=== PATIENT | female | born 1960 | race Caucasian/White ===

== ENCOUNTER 2021-01-05 10:58 | Emergency (ER) | payer SELFPAY ==
--- NOTE | 2021-01-05 11:38 | RAD REPORT ---
EXAM DESCRIPTION: RAD - Ankle Right 3 View - 01/05/2021 11:30 am CLINICAL HISTORY: Ankle pain FINDINGS: Mildly displaced lateral malleolar fracture. Small chip fracture from the medial malleolus. No dislocation. Soft tissue swelling
--- NOTE | 2021-01-05 11:47 | ER ---
Nurse's Notes [facility] [place] Name: Nelly Batista Age: 60 yrs Sex: Female : 1960 Arrival Date: 01/05/2021 Time: 10:59 Bed 12 Private MD: Diagnosis: Displaced fracture of lateral malleolus of right fibula Presentation: 01/05 11:01 Chief complaint: Patient states: "I was just walking my dog and I twisted my ankle". Pt aa5 c/o pain to right ankle pain. Coronavirus screen: At this time, the client does not indicate any symptoms associated with coronavirus-19. Ebola Screen: No symptoms or risks identified at this time. Initial Sepsis Screen: Does the patient meet any 2 criteria? No. Patient's initial sepsis screen is negative. Does the patient have a suspected source of infection? No. Patient's initial sepsis screen is negative. Risk Assessment: Do you want to hurt yourself or someone else? Patient reports no desire to harm self or others. Onset of symptoms was December 2020. 11:01 Method Of Arrival: Wheelchair aa5 11:01 Acuity: JAZZY 4 aa5 Historical: - Allergies: 11:02 No Known Allergies; aa5 - PMHx: 11:02 Seizure; aa5 - PSHx: 11:02 None; aa5 - Immunization history:: Client reports receiving the 2nd dose of the Covid vaccine. - Social history:: Smoking status: Patient denies any tobacco usage or history of. Screenin:31 Abuse screen: Denies threats or abuse. Denies injuries from another. Nutritional 5 screening: No deficits noted. Tuberculosis screening: No symptoms or risk factors identified. Fall Risk Fall in past 12 months (25 points). Assessment: 11:25 General: Appears in no apparent distress. Behavior is calm, cooperative. Pain: 5 Complains of pain in right foot and right leg. Neuro: No deficits noted. Level of Consciousness is awake, alert, obeys commands, Oriented to person, place, time, situation, Speech is normal. Cardiovascular: No deficits noted. Capillary refill < 3 seconds Patient's skin is warm and dry. Respiratory: No deficits noted. Airway is patent Trachea midline Respiratory effort is even, unlabored, Respiratory pattern is regular. Musculoskeletal: gross swelling to right lateral malleolus; post fall. Injury Description: Deformity sustained to right foot and right leg. Vital Signs: 11:02 Pulse 79; Resp 18 S; Temp 97.3(TE); Pulse Ox 100% on R/A; aa5 11:03 BP 126 / 74; Pulse 84; Resp 16 S; Temp 97.3(TE); Pulse Ox 100% on R/A; Weight 58.97 kg aa5 (R); Height 5 ft. 5 in. (165.10 cm) (R); 11:03 Body Mass Index 21.63 (58.97 kg, 165.10 cm) aa5 ED Course: 10:59 Patient arrived in ED. as 11:00 Nick[facility] Myers [facility]C [facility]. kb 11:00 Sunil Acosta MD is Attending Physician. kb 11:01 Arm band placed on. aa5 11:02 Triage completed. aa5 11:23 X-ray completed. Portable x-ray completed in exam room. md1 11:24 Henny Pascual, RN is Primary Nurse. 5 11:30 Ankle Right 3 View XRAY In Process Unspecified. EDMS 11:31 Patient has correct armband on for positive identification. Bed in low position. Call [facility] light in reach. Side rails up X 1. 11:58 No provider procedures requiring assistance completed. Patient did not have IV access [facility] during this emergency room visit. 11:58 Crutch training done. Mamadou wrap to right ankle Orthoglass splint: Posterior short lleg 5 splint applied on right leg. Administered Medications: 11:51 Drug: [place] (HYDROcodone-acetaminophen) (7.5 mg-325 mg) 1 tabs Route: PO; 5 Outcome: 11:47 Discharge ordered by . kb 12:13 Patient left the ED. 5 Signatures: Dispatcher [employer] EDMS Nicki Myers FNP-C FNP-Ckb Martinez, Amelia as Calderon, Audri, RN RN 5 Lexii Diehl md1 Henny Pascual RN RN [facility]
--- NOTE | 2021-01-05 11:47 | EDPHYS ---
Physician Documentation [facility] Name: Nelly Batista Age: 60 yrs Sex: Female : 1960 Arrival Date: 01/05/2021 Time: 10:59 Bed 12 Private MD: ED Physician Sunil Acosta HPI: 01/05 13:51 This 60 yrs old Female presents to ER via Wheelchair with complaints of Ankle kb Injury. 13:51 The patient presents with an injury, pain, swelling, tenderness. The complaints affect kb the right ankle. Onset: The symptoms/episode began/occurred just prior to arrival. Context: The problem was sustained outdoors, resulted from the patient falling, The mechanism of injury is unknown. The patient can partially bear weight on the affected extremity. the patient is able to ambulate. Associated signs and symptoms: Pertinent positives: swelling, Pertinent negatives: calf tenderness, fever, nausea, numbness, rash, tingling, vomiting, warmth, weakness. Modifying factors: The symptoms are alleviated by nothing, the symptoms are aggravated by weight bearing, movement. Severity of symptoms: At their worst the symptoms were moderate, in the emergency department the symptoms are unchanged. The patient has not experienced similar symptoms in the past. The patient has not recently seen a physician. Pt states she was walking the dog and it made her fall. States she twisted her ankle during the fall. c/o pain to right lateral ankle. Historical: - Allergies: 11:02 No Known Allergies; aa5 - PMHx: 11:02 Seizure; aa5 - PSHx: 11:02 None; aa5 - Immunization history:: Client reports receiving the 2nd dose of the Covid vaccine. - Social history:: Smoking status: Patient denies any tobacco usage or history of. ROS: 13:52 Constitutional: Negative for fever, chills, and weight loss. kb 13:52 MS/extremity: Positive for injury or acute deformity, pain, swelling, tenderness, of the right ankle. 13:52 All other systems are negative. Exam: 13:53 Constitutional: This is a well developed, well nourished patient who is awake, alert, kb and in no acute distress. Head/Face: Normocephalic, atraumatic. ENT: Moist Mucous membranes Respiratory: Respirations even and unlabored. No increased work of breathing, no retractions or nasal flaring. Skin: Warm, dry with normal turgor. Normal color. Neuro: Awake and alert, GCS 15, oriented to person, place, time, and situation. Moves all extremities. Normal gait. Psych: Awake, alert, with orientation to person, place and time. Behavior, mood, and affect are within normal limits. 13:53 Musculoskeletal/extremity: Extremities: grossly normal except: noted in the right ankle: pain, swelling, tenderness, ROM: intact in all extremities, Circulation is intact in all extremities. Sensation intact. Weight bearing: can bear weight with assistance only. Vital Signs: 11:02 Pulse 79; Resp 18 S; Temp 97.3(TE); Pulse Ox 100% on R/A; aa5 11:03 BP 126 / 74; Pulse 84; Resp 16 S; Temp 97.3(TE); Pulse Ox 100% on R/A; Weight 58.97 kg aa5 (R); Height 5 ft. 5 in. (165.10 cm) (R); 11:03 Body Mass Index 21.63 (58.97 kg, 165.10 cm) aa5 Procedures: 13:53 Splinting: Splint applied to right leg using Orthoglass splint, applied by tech. kb Examined by me, post splint application: neurovascular intact, 2+ distal pulses palpable, brisk capillary refill noted, Patient tolerated well. MDM: 11:00 Patient medically screened. kb 13:53 Data reviewed: vital signs, nurses notes. Data interpreted: Pulse oximetry: on room air kb is 100 %. Interpretation: normal. Counseling: I had a detailed discussion with the patient and/or guardian regarding: the historical points, exam findings, and any diagnostic results supporting the discharge/admit diagnosis, radiology results, the need for outpatient follow up, a orthopedic surgeon, to return to the emergency department if symptoms worsen or persist or if there are any questions or concerns that arise at home. 01/05 11:03 Order name: Ankle Right 3 View XRAY; Complete Time: 11:38 kb 01/05 11:39 Order name: Short Leg Splint; Complete Time: 11:51 kb 01/05 11:39 Order name: Crutches; Complete Time: 11:49 kb Administered Medications: 11:51 Drug: [place] (HYDROcodone-acetaminophen) (7.5 mg-325 mg) 1 tabs Route: PO; jh5 Disposition: 01/06 09:06 Co-signature as Attending Physician, Sunil Acosta MD I agree with the assessment and sp3 plan of care. Disposition Summary: 01/05/21 11:47 Discharge Ordered Location: Home Condition: Stable kb Diagnosis - Displaced fracture of lateral malleolus of right fibula kb Followup: kb - With: Emergency Department - When: As needed - Reason: Worsening of condition Followup: kb - With: Private Physician - When: 2 - 3 days - Reason: Recheck today's complaints, Continuance of care, Re-evaluation by your physician Discharge Instructions: - Discharge Summary Sheet kb - Ankle Fracture, [id number] kb Forms: - Medication Reconciliation Form kb - Thank You Letter kb - Antibiotic Education kb - Prescription Opioid Use kb Prescriptions: - Diclofenac Sodium 75 mg Oral tablet,delayed release (DR/EC) - take 1 tablet by ORAL route 2 times per day As needed; 30 tablet; Refills: 0, kb Product Selection Permitted Signatures: Dispatcher [employer] EDMS Nicki Myers, MICHELLE-C MICHELLE-Hilda Cartwright, RN RN aa5 Sunil Acosta MD MD sp3 Henny Pascual RN RN jh5
[2021-01-05] MEDS ORDERED: HYDROCODONE/APAP 7.5/325 MG TAB ONE (11:50)
[2021-01-05 12:30] VITALS: TEMP 97.3; O2SAT 100
[2021-01-05 12:32] VITALS: BP 126/74
== END 2021-01-05 12:13 | disposition home or self-care (01) ==
LOC: ER 10:58
PROC: 2W3QX1Z Immobilization of Right Lower Leg using Splint (ICD-10-PCS; principal; 2021-01-05)
DX: S82.61XA Displaced fracture of lateral malleolus of right fibula, initial encounter for closed fracture (principal); W19.XXXA Unspecified fall, initial encounter; Y93.K1 Activity, walking an animal
CPT/HCPCS: 99283